=== PATIENT | female | born 1990 | race American Indian/Alaskan Native ===

== ENCOUNTER 2019-09-09 08:11 | Emergency (ER) | payer OTHER ==
[2019-09-09 08:25] VITALS: BP 146/87
--- NOTE | 2019-09-09 08:58 | Emergency Department Report ---
HPI - General Chief Complaint: Skin Rash Time Seen by Provider: 09/09/19 08:54 - HPI HPI: 29 yo comes to ER with several day hx of a rash. no fever. no allergies. 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 abc intact. vss. ambulatory and non ill appearing. no one in home with rash. no known trigger. ED Past Medical Hx - Past Medical History Previous Medical History?: Yes Hx Seizures: Yes - Surgical History Past Surgical History?: No - Family History Family history: no significant - Social History Smoking Status: Current Every Day Smoker Substance Use Type: Alcohol - Medications Home Medications: Home Medications Medication Instructions Recorded Confirmed Last Taken Type Cetirizine HCl [ZyrTEC] 10 mg PO DAILY #30 capsule 09/09/19 Unknown Rx hydrOXYzine PAMOATE [Vistaril] 25 mg PO Q6HR PRN #20 capsule 09/09/19 Unknown Rx predniSONE [Deltasone] 20 mg PO DAILY #5 tablet 09/09/19 Unknown Rx ED Review of Systems ROS: Stated complaint: ALLERGIC REACTION Other details as noted in HPI Comment: All other systems reviewed and negative Physical Exam - Physical Exam Vital Signs: Vital Signs 09/09/19 08:23 Temperature 98.5 F Pulse Rate 100 H Respiratory 18 Rate Blood Pressure 146/87 O2 Sat by Pulse 99 Oximetry ED Course Vital Signs 09/09/19 08:23 Temperature 98.5 F Pulse Rate 100 H Respiratory 18 Rate Blood Pressure 146/87 O2 Sat by Pulse 99 Oximetry ED Medical Decision Making - Medical Decision Making Vital Signs 09/09/19 08:23 Temperature 98.5 F Pulse Rate 100 H Respiratory 18 Rate Blood Pressure 146/87 O2 Sat by Pulse 99 Oximetry flat macular rash with no eye or oral lesions. no fever no systemic symptoms dc home with dc plan of care and follow up - Differential Diagnosis ro allergic rx/scabies Critical care attestation.: If time is entered above; I have spent that time in minutes in the direct care of this critically ill patient, excluding procedure time. ED Disposition Clinical Impression: Urticaria Disposition: DC-01 TO HOME OR SELFCARE Is pt being admited?: No Does the pt Need Aspirin: No Condition: Stable Instructions: Acute Rash (ED) Prescriptions: predniSONE [Deltasone] 20 mg PO DAILY #5 tablet hydrOXYzine PAMOATE [Vistaril] 25 mg PO Q6HR PRN #20 capsule PRN Reason: Itching Cetirizine HCl [ZyrTEC] 10 mg PO DAILY #30 capsule Referrals: FELIX POLANCO MD [Referring] - 3-5 Days Forms: Work/School Release Form(ED) Time of Disposition: 09:16 Physical Exam - Physical Exam Vital Signs: Vital Signs 09/09/19 08:23 Temperature 98.5 F Pulse Rate 100 H Respiratory 18 Rate Blood Pressure 146/87 O2 Sat by Pulse 99 Oximetry ED Psych EXAM - Physical Exam General Appearance: WD/WN Eyes, Ears, Nose, Throat Exam: PERRL/EOMI Neck: NON Respiratory: chest non-tender Cardiovascular/Chest: normal peripheral pulses Gastrointestinal/Abdominal: normal bowel sounds Extremities Exam: non-tender Neurological: alert Appearance: appropriate appearance Behavior/Eye Contact/Speech: cooperative Thoughts/Hallucinations: normal thought pattern Skin Exam: normal color ED Physical Exam - General Limitations: No Limitations General appearance: alert, in no apparent distress - Head Head exam: Present: atraumatic, normocephalic - Eye Eye exam: Present: normal appearance - ENT ENT exam: Present: mucous membranes moist - Neck Neck exam: Present: normal inspection - Respiratory Respiratory exam: Present: normal lung sounds bilaterally. Absent: respiratory distress - Cardiovascular Cardiovascular Exam: Present: regular rate, normal rhythm. Absent: systolic murmur, diastolic murmur, rubs, gallop - GI/Abdominal GI/Abdominal exam: Present: soft, normal bowel sounds - Extremities Exam Extremities exam: Present: normal inspection - Back Exam Back exam: Present: normal inspection - Neurological Exam Neurological exam: Present: alert, oriented X3 - Psychiatric Psychiatric exam: Present: normal affect, normal mood - Skin Skin exam: Present: warm, dry, intact, normal color, rash, urticaria, other (macular rash). Absent: cyanosis, diaphoretic, erythema, vesicles, petechiae, pallor, abrasion, ecchymosis
[2019-09-09] MEDS ORDERED: methylPREDNISolone ACETATE 80 MG/1 ML INJ IM ONE (09:16)
[2019-09-09] MEDS ORDERED: hydrOXYzine PAMOATE 25 MG CAP PO ONE (09:16)
[2019-09-09] MEDS ORDERED: LORATADINE (NF) 10 MG TAB PO ONE (09:16)
== END 2019-09-09 09:32 | disposition home or self-care (01) ==
LOC: ED 08:11
DX: L50.9 Urticaria, unspecified (principal); F17.200 Nicotine dependence, unspecified, uncomplicated
CPT/HCPCS: 96372; 99282; J1040; Q0177